=== PATIENT | female | born 1980 | race Caucasian/White ===

== ENCOUNTER 2016-12-25 19:57 | Emergency (ER) | payer BC ==
[2016-12-25 20:51] VITALS: BP 110/56
--- NOTE | 2016-12-26 09:47 | EKG REPORT ---
SEVERITY:- BORDERLINE ECG - SINUS RHYTHM BORDERLINE T WAVE ABNORMALITIES : Confirmed by: Zac Denson 26-Dec-2016 09:46:25
== END 2016-12-25 21:08 | disposition left against medical advice (07) ==
LOC: ER 19:57
DX: Z53.21 Procedure and treatment not carried out due to patient leaving prior to being seen by health care provider (principal)
CPT/HCPCS: 93005; 93010